=== PATIENT | female | born 1990 ===

== ENCOUNTER 2023-07-16 14:12 | Outpatient (AMB) | payer OTHER, SELFPAY ==
--- NOTE | 2023-07-16 14:15 | MHC.OFFWIV ---
Intake Vital Signs 07/16/23 14:19 Weight 181 lb BP 110/74 Blood Pressure Location Rt brachial Position Sitting Pulse 70 Pulse Source Pulse Oximeter Pulse Oximetry (%) 99 Oxygen Delivery Method Room Air Intake Visit Reasons: EST/work note post stomach bug Intake Note: Patient here because she was out of work for the past 3 days and needs a note to return. Patient Tobacco Use Status: Never used Tobacco Allergies No Known Allergies Allergy (Verified 07/16/23 14:21) Do you need a note to return to daycare/school/sports/work: Yes HPI HPI Comments History of Present Illness Details 33 yo F that presents requesting working no after missing work with a stomach bug. Also endorses a mild sore throat. PFSH Social History Patient Tobacco Use Status: Never used Tobacco Review of Systems ENT Reports sore throat Physical Exam Vital Signs: Last Vital Signs Pulse 70 07/16/23 14:19 BP 110/74 07/16/23 14:19 Pulse Ox 99 07/16/23 14:19 Oxygen Delivery Method Room Air 07/16/23 14:19 Const General: healthy appearing, comfortable, no acute distress and alert Orientation/consciousness: patient oriented x3 Limitations: no limitations HEENT Other: Posterior pharynx without erythema no exudate. Tonsils 1+ bilaterally no trismus muffled voice uvula midline Head: Yes normal to inspection Ears: hearing grossly normal bilaterally Resp Effort & Inspection: normal respiratory effort and able to speak in complete sentences Cardio Rate: regular rate Skin General skin exam: no rashes or lesions noted Neuro General: patient oriented x3 Extrem General: Yes normal to inspection Assessment & Plan Assessment & Plan (1) Acute pharyngitis: Code(s): J02.9 - Acute pharyngitis, unspecified Qualifiers: Pharyngitis/tonsillitis etiology: unspecified etiology Qualified Code(s): J02.9 - Acute pharyngitis, unspecified Plan: VSS exam notable for Posterior pharynx without erythema no exudate. Tonsils 1+ bilaterally no trismus muffled voice uvula midline. Likely viral recommend symptom control w/ tylenol and motrin. Discharge instructions, follow up and treatment are discussed with patient in my usual fashion. Alternatives in treatment are also discussed. The patient will return for worsening symptoms or as needed. Advised that any labs/imaging ordered will be followed up on and contact made if further treatment needed. Counseled that patient's condition may require further evaluation and/or treatment. Symptoms of concern for worsening disorder discussed in detail in my customary manner. Patient does verbalize understanding of the plan, there are no apparent barriers to communication. The patient is given the opportunity to ask questions and have them answered to his/her satisfaction Coding Level of Care Code Est Pt Level 3 (80525) Diagnoses Acute pharyngitis, unspecified etiology J02.9 Pharyngitis/tonsillitis etiology: unspecified etiology
[2023-07-16 14:19] VITALS: BP 110/74; PULSE 70; O2SAT 99
== END 2023-07-16 14:34 | disposition home or self-care (01) ==
PROVIDERS: Visit Provider Physician Assistant
DX: J02.9 Acute pharyngitis, unspecified (principal)
CPT/HCPCS: 99213